=== PATIENT | male | born 1950 | race Caucasian/White ===

== ENCOUNTER 2024-05-23 14:40 | Emergency (ER) | payer MEDICARE, OTHER ==
[2024-05-23 15:14] LABS: BASOPHILS PERCENT AUTO 0.4 % (0.0-1.0); EOSINOPHILS ABSOLUTE AUTO 0.1 K/mm3 (0.0-0.4); EOSINOPHILS PERCENT AUTO 0.7 % (0.0-6.0); HEMATOCRIT 48.7 % (42.0-52.0); HEMOGLOBIN 16.3 gm/dl (14.0-18.0); IMMATURE GRAN ABSOLUTE AUTO 0.02 K/mm3 (0.00-0.05); IMMATURE GRAN PERCENT AUTO 0.2 % (0.0-0.4); LYMPHOCYTES ABSOLUTE AUTO 1.6 K/mm3 (1.0-4.8); LYMPHOCYTES PERCENT AUTO 15.5 % (24.0-44.0); MEAN CORPUSCULAR HEMOGLOBIN 31.3 pg (28.0-32.0); MEAN CORPUSCULAR HGB CONC 33.5 g/dl (32.0-36.0); MEAN CORPUSCULAR VOLUME 93.7 fl (83.0-99.0); MEAN PLATELET VOLUME 10.2 fl (9.4-12.4); MONOCYTES ABSOLUTE AUTO 0.8 K/mm3 (0.0-0.8); MONOCYTES PERCENT AUTO 7.4 % (0.0-8.0); NEUTROPHILS PERCENT AUTO 75.8 % (41.0-71.0); PLATELET COUNT,PLT 236 K/mm3 (150-400); WHITE BLOOD CELL COUNT,WBC 10.58 K/mm3 (3.9-11.3)
[2024-05-23 15:39] LABS: A/G RATIO 1.1 (1-2); ALBUMIN 3.6 g/dl (3.4-5.0); ANION GAP 11.5 (5-15); BILIRUBIN TOTAL 0.8 mg/dL (0.2-1.0); BUN/CREATININE RATIO 13.6 (14-18); CREATININE 2.5 mg/dL (0.7-1.3); EST CRCL DRUG DOSING (CG) 29.74 mL/min; MAGNESIUM 2.5 mg/dL (1.8-2.4); POTASSIUM,K 3.5 mEq/L (3.5-5.1); PROTEIN TOTAL,TP 6.9 g/dl (6.4-8.2)
[2024-05-23 15:41] LABS: INR 1.03; PROTHROMBIN TIME 10.9 SECONDS (9.7-12.0)
[2024-05-23 15:42] LABS: D-DIMER QUANTITATIVE 0.21 mg/L (0.19-0.50)
[2024-05-23 15:43] LABS: PTT,PARTIAL THROMBOPLSTIN TIME 25.1 SECONDS (21.7-31.4)
[2024-05-23] MEDS: Lactated Ringers 1,000 ML IV SCH (15:46)
[2024-05-23] MEDS: Aspirin 81 MG Tab.Chew PO ONE (15:48)
[2024-05-23] MEDS ORDERED: Lactated Ringers 1,000 ML IV ONE (16:32)
[2024-05-23] MEDS: Lactated Ringers 1,000 ML IV ONE (17:40)
[2024-05-23 18:24] LABS: CORONAVIRUS COVID-19 NAA NEGATIVE (NEGATIVE); INFLUENZA A NAA NEGATIVE (NEGATIVE); RESPIRATORY SYNCYTIAL VIR NAA NEGATIVE (NEGATIVE)
[2024-05-23 19:24] LABS: ANION GAP 13.3 (5-15); BUN/CREATININE RATIO 17.1 (14-18); CALCIUM 8.5 mg/dL (8.5-10.1); CREATININE 2.1 mg/dL (0.7-1.3); EST CRCL DRUG DOSING (CG) 35.41 mL/min; POTASSIUM,K 3.3 mEq/L (3.5-5.1)
[2024-05-23] MEDS: Potassium Chloride 10 MEQ Tab.ER PO ONE (20:36)
== END 2024-05-23 20:42 | disposition home or self-care (01) ==
LOC: JD.ED 14:40
DX: E86.0 Dehydration (principal); E87.6 Hypokalemia; Z79.82 Long term (current) use of aspirin; Z79.899 Other long term (current) drug therapy
CPT/HCPCS: 0241U; 36415; 71045; 71045-26; 80048; 80053; 83735; 83880; 84484; 85025; 85379; 85610; 85730; 93005; 93010; 96360; 96361; 99284; 99285-25; A9270-GY; J7120

== ENCOUNTER 2025-09-07 08:31 | Day surgery (SDC) | payer MEDICARE, OTHER ==
[~2025-09-07 08:31] MED LIST: Sodium Chloride 0.9% 10 ML Syringe FLUSH PRN; Sodium Chloride 0.9% 10 ML Syringe FLUSH SCH
[2025-09-07] MEDS: Lactated Ringers 1,000 ML IV SCH (08:55)
[2025-09-07 09:20] LABS: INR 1.05
[2025-09-07 09:22] LABS: PTT,PARTIAL THROMBOPLSTIN TIME 25.5 SECONDS (21.7-31.4)
[2025-09-07] MEDS ORDERED: fentaNYL 250 MCG/5 ML SDV ONE (09:22)
[2025-09-07] MEDS ORDERED: Propofol 200 MG/20 ML SDV ONE ×2 (09:22→12:00)
[2025-09-07] MEDS ORDERED: Ketamine HCL/NACL, ISO-OSM 50 MG/5 ML Syringe ONE (09:22)
[2025-09-07] MEDS ORDERED: Phenylephrine 1% 10 MG/ML SDV ONE (09:22)
[2025-09-07] MEDS ORDERED: dexmedeTOMIDine HCl 200 MCG/2 ML SDV ONE (09:28)
[2025-09-07] MEDS ORDERED: propofoL 500 MG/50 ML 50 ML ONE ×2 (09:34→11:38)
[2025-09-07] MEDS: oxyCODONE ER 10 MG TAB.ER PO SCH (09:47)
[2025-09-07] MEDS ORDERED: ePHEDrine 50 MG/ML SDV ONE (11:12)
[2025-09-07] MEDS ORDERED: Lactated Ringers 1,000 ML IV ONE (11:30)
[2025-09-07] MEDS ORDERED: Dexamethasone 4 MG/ML 5 ML MDV ONE (11:43)
[2025-09-07] MEDS ORDERED: Ondansetron 4 MG/2 ML SDV ONE (11:43)
[2025-09-07] MEDS: Morphine 8 MG, EPINEPHrine 0.3 MG, Cefuroxime 750 MG, Ketorolac 30 MG, Sodium Chloride ... PRN (11:46)
[2025-09-07] MEDS ORDERED: Ondansetron 4 MG/2 ML SDV IVPUSH PRN (12:30)
[2025-09-07] MEDS: fentaNYL 100 MCG/2 ML SDV IVPUSH PRN (12:58)
== END 2025-09-07 15:26 | disposition home or self-care (01) ==
LOC: JD.SDS 08:31
PROVIDERS: ATTEND Orthopaedic Surgery
DX: M16.0 Bilateral primary osteoarthritis of hip (principal); I12.9 Hypertensive chronic kidney disease with stage 1 through stage 4 chronic kidney disease, or unspecified chronic kidney disease; N18.32 Chronic kidney disease, stage 3b; K21.9 Gastro-esophageal reflux disease without esophagitis; G89.29 Other chronic pain; M54.2 Cervicalgia; Z79.82 Long term (current) use of aspirin; Z79.899 Other long term (current) drug therapy
CPT/HCPCS: 0055T; 27130; 36415; 73501; 85610; 85730; 97116; 97161; A9270; C1713; C1776; J0169; J0690; J0697; J1100; J1885; J2272; J2371; J2405; J2704; J3010; J3373; J7120; 01214; 99100; J1171; J3490